=== PATIENT | male | born 1955 | race Caucasian/White ===

== ENCOUNTER 2018-08-28 17:53 | Inpatient (IN) | payer MEDICARE, OTHER ==
[~2018-08-28] VITALS: Ht 175.3 cm; Wt 79.4 kg
[2018-08-28] MEDS ORDERED: oxyCODONE/APAP 5/325 1 TAB TABLET PO ONE (19:45)
--- NOTE | 2018-08-28 20:28 | RAD ---
Three-view left knee radiographs 08/28/2018 CLINICAL HISTORY: Left knee pain post lifting furniture. AP, lateral and oblique digital radiographs of the left knee were obtained. An acute comminuted fracture of the proximal metaphysis of the left tibia is seen. The fracture extends to the medial aspect of the distal proximal metaphysis/proximal diaphysis and extends to the medial aspect of the medial compartment of the left knee joint. The alignment of the fracture fragments is near-anatomic. No additional fracture is seen. There is a moderate sized left knee joint effusion. IMPRESSION: Comminuted fracture of the proximal left tibia which extends to the medial tibial plateau/knee joint. Electronically signed by: Marcel Wallace MD (08/28/2018 8:24 PM) [facility]
[2018-08-28 20:52] LABS: BASO % 1 % (0-3); EOS # 0.1 x10^3/uL (0.0-0.7); EOS % 1 % (0-3); HEMATOCRIT 46.6 % (39.0-53.0); HEMOGLOBIN 16.3 g/dL (13.0-17.5); LYMPH # 1.6 x10^3/uL (1.0-4.8); LYMPH % 18 % (24-48); MEAN CORPUSCULAR HEMOGLOBIN 35 pg (25-35); MEAN CORPUSCULAR HGB CONC 35 g/dL (31-37); MEAN CORPUSCULAR VOLUME 100 fL (79-100); MONO # 1.2 x10^3/uL (0.0-1.1); MONO % 13 % (0-9); NEUT # 6.1 x10^3uL (1.8-7.7); NEUT % 67 % (31-73); PLATELET COUNT 143 x10^3/uL (140-400); RED BLOOD COUNT 4.64 x10^6/uL (4.30-5.70); RED CELL DISTRIBUTION WIDTH 13.3 % (11.5-14.5); WHITE BLOOD COUNT 9.1 x10^3/uL (4.0-11.0)
[2018-08-28] MEDS ORDERED: ONDANSETRON PF 4 MG/2 ML VIAL. IV PRN (21:00)
[2018-08-28 21:01] LABS: CALCIUM 9.3 mg/dL (8.5-10.1); GFR 75.5
[2018-08-28 21:06] LABS: ALBUMIN/GLOBULIN RATIO 1.4 (1.0-1.7); TOTAL BILIRUBIN 1.1 mg/dL (0.2-1.0); TOTAL PROTEIN 6.9 g/dL (6.4-8.2)
[2018-08-28] MEDS: MORPHINE SULFATE 4 MG/ML VIAL. IV PRN (21:54)
[2018-08-28 22:00] VITALS: BP 139/73
--- NOTE | 2018-08-28 22:36 | PHYS DOC ---
Past Medical History Past Medical History: Cancer, Liver Disease Past Surgical History: Other Additional Past Surgical Histo: LIVER BX,HERNIA Alcohol Use: None Drug Use: None Adult General Chief Complaint Chief Complaint: KNEE INJURY HPI HPI Patient is a 63 year old Male who presents to the emergency department today with complaints of left knee pain. Patient states that at approximately 10 o' clock this morning he was helping his brother load a moving truck and he was pushing an entertainment center that was loaded onto a guera into the moving truck when he lost his step and fell onto his left knee. Patient states that after he fell the entertainment center fell on top of him. He states he has been unable to bear weight on the affected extremity since the injury. He denies any complaints other than left leg and knee pain at this time. He states he has been using crutches to get around today. He reports normal sensation of the lower left extremity. However, he has been experiencing tingling and shooting sharp pains in the lower left extremity. Currently he rates his pain as a 9/10 on the pain scale at rest. Review of Systems Review of Systems Constitutional: Denies fever or chills [] Eyes: Denies change in visual acuity, redness, or eye pain [] HENT: Denies neck pain [] Respiratory: Denies shortness of breath [] Cardiovascular: denies chest pain Musculoskeletal: Denies back pain, reports L knee and lower left leg pain Integument: Denies rash or skin lesions, reports swelling to left knee [] Neurologic: Denies headache, focal weakness or sensory changes [] All other systems were reviewed and found to be within normal limits, except as documented in this note. Current Medications Current Medications Current Medications Medications (Trade) Dose Ordered Sig/[facility] Start Time Stop Time Status Last Admin Dose Admin Oxycodone/ Acetaminophen (Percocet 5/325) 1 tab 1X ONCE 08/28/18 19:45 08/28/18 19:54 DC 08/28/18 19:58 1 TAB Allergies Allergies Physical Exam Physical Exam Constitutional: Well developed, well nourished, mild distress, non-toxic appearance. [] HENT: Normocephalic, atraumatic, bilateral external ears normal, oropharynx moist, no oral exudates, nose normal. [] Eyes: conjunctiva normal, no discharge. [] Neck: Normal range of motion, no stridor. [] Lungs & Thorax: Respirations even and un-labored Skin: Warm, dry, no erythema, no rash. [] Extremities: No cyanosis, no clubbing; swelling and tenderness to left knee and LLE, L pedal and posterial tibial pulses 2+, pt unable to tolerate ROM testing of LLE due to pain Neurologic: Alert and oriented X 3, normal motor function, normal sensory function, no focal deficits noted. [] Psychologic: Affect normal, judgement normal, mood normal. [] Current Patient Data Vital Signs Vital Signs Date Time Temp Pulse Resp B/P (MAP) Pulse Ox O2 Delivery O2 Flow Rate FiO2 08/28/18 18:34 98.2 83 16 131/69 (89) 98 Room Air 98.2 Lab Values Laboratory Tests Test 08/28/18 20:40 White Blood Count 9.1 x10^3/uL (4.0-11.0) Red Blood Count 4.64 x10^6/uL (4.30-5.70) Hemoglobin 16.3 g/dL (13.0-17.5) Hematocrit 46.6 % (39.0-53.0) Mean Corpuscular Volume 100 fL (79-100) Mean Corpuscular Hemoglobin 35 pg (25-35) Mean Corpuscular Hemoglobin Concent 35 g/dL (31-37) Red Cell Distribution Width 13.3 % (11.5-14.5) Platelet Count 143 x10^3/uL (140-400) Neutrophils (%) (Auto) 67 % (31-73) Lymphocytes (%) (Auto) 18 % (24-48) L Monocytes (%) (Auto) 13 % (0-9) H Eosinophils (%) (Auto) 1 % (0-3) Basophils (%) (Auto) 1 % (0-3) Neutrophils # (Auto) 6.1 x10^3uL (1.8-7.7) Lymphocytes # (Auto) 1.6 x10^3/uL (1.0-4.8) Monocytes # (Auto) 1.2 x10^3/uL (0.0-1.1) H Eosinophils # (Auto) 0.1 x10^3/uL (0.0-0.7) Basophils # (Auto) 0.0 x10^3/uL (0.0-0.2) Sodium Level 136 mmol/L (136-145) Potassium Level 4.0 mmol/L (3.5-5.1) Chloride Level 98 mmol/L (98-107) Carbon Dioxide Level 24 mmol/L (21-32) Anion Gap 14 (6-14) Blood Urea Nitrogen 10 mg/dL (8-26) Creatinine 1.0 mg/dL (0.7-1.3) Estimated GFR (Cockcroft-Gault) 75.5 BUN/Creatinine Ratio 10 (6-20) Glucose Level 95 mg/dL (70-99) Calcium Level 9.3 mg/dL (8.5-10.1) Total Bilirubin 1.1 mg/dL (0.2-1.0) H Aspartate Amino Transferase (AST) 36 U/L (15-37) Alanine Aminotransferase (ALT) 49 U/L (16-63) Alkaline Phosphatase 84 U/L (46-116) Total Protein 6.9 g/dL (6.4-8.2) Albumin 4.0 g/dL (3.4-5.0) Albumin/Globulin Ratio 1.4 (1.0-1.7) Laboratory Tests 08/28/18 20:40 Laboratory Tests 08/28/18 20:40 EKG EKG [] Radiology/Procedures Radiology/Procedures PROCEDURE: KNEE LEFT 3V Three-view left knee radiographs 08/28/2018 CLINICAL HISTORY: Left knee pain post lifting furniture. AP, lateral and oblique digital radiographs of the left knee were obtained. An acute comminuted fracture of the proximal metaphysis of the left tibia is seen. The fracture extends to the medial aspect of the distal proximal metaphysis/proximal diaphysis and extends to the medial aspect of the medial compartment of the left knee joint. The alignment of the fracture fragments is near-anatomic. No additional fracture is seen. There is a moderate sized left knee joint effusion. IMPRESSION: Comminuted fracture of the proximal left tibia which extends to the medial tibial plateau/knee joint.[] Course & Med Decision Making Course & Med Decision Making Pertinent Labs and Imaging studies reviewed. (See chart for details) Dx: L tibial plateau fracture Pt was given one 5/325 mg tablet of percocet and 4 mg of IV morphine in the ER for pain relief. X-rays of the left knee revealed Comminuted fracture of the proximal left tibia which extends to the medial tibial plateau/knee joint. Pt was placed in a velcro knee immobilizer by ER staff prior to admission to hospital . 1999 Spoke with Irina ORTEGA for Dr. Barillas will admit patient to hospitalist for left tibial plateau fracture and consult Dr. Barillas [address] Garcia will admit patient for left tibal plateau fracture and consult Dr. Doshi [] Staff Physician Addendum: I was working in the ER during the course of this patient's visit. I was available for consultation as needed, but I was not directly involved in the care of this patient. Dragon Disclaimer Dragon Disclaimer This electronic medical record was generated, in whole or in part, using a voice recognition dictation system. Departure Departure Impression: Primary Impression: Tibial plateau fracture, left Disposition: 09 ADMITTED INPATIENT Admitting Physician: Leslie Garcia Condition: STABLE Referrals: UNKNOWN PCP NAME (PCP) Problem Qualifiers Primary Impression: Tibial plateau fracture, left Encounter type: initial encounter Fracture type: closed Qualified Codes: S82.142A - Displaced bicondylar fracture of left tibia, initial encounter for closed fracture KENZIE AMARO APRN Aug 28, 2018 22:36 RHONDA GUERRA MD Aug 31, 2018 06:14
[2018-08-29 03:00] VITALS: BP 105/58
[2018-08-29 07:00] VITALS: BP 111/60
[2018-08-29] MEDS: MORPHINE SULFATE 4 MG/ML VIAL. IV PRN ×3 (07:40→15:53)
[2018-08-29] MEDS ORDERED: IV NORMAL SALINE 1000ML BAG 1,000 ML IV ONE (08:45)
--- NOTE | 2018-08-29 08:47 | PDOC1 ---
History and Physical Date of Admission Date of Admission DATE: 08/29/18 TIME: 08:42 Source Source: Chart review, Patient History of Present Illness History of Present Illness Mr. Contreras, visiting from [place] to help his brother move, fell and injured his left knee yesterday. Could not walk, waited almost 8 hours and thought it would improve before coming to the ER. severe, could not toe touch with left foot, and could not use crutches due to pain X ray showed tibial plateau fx. 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) GI: Other (liver disease, that he says is now resolved, ) Family History Family History: No Significant Social History Smoke: No ALCOHOL: rare (1 every few months) Drugs: None Current Problem List Problem List Problems Medical Problems: (1) Tibial plateau fracture, left Status: Acute Current Medications Current Medications Current Medications Oxycodone/ Acetaminophen (Percocet 5/325) 1 tab 1X ONCE PO Last administered on 08/28/18at 19:58; Start 08/28/18 at 19:45; Stop 08/28/18 at 19:54; Status DC Ondansetron HCl (Zofran) 4 mg PRN Q8HRS PRN IV NAUSEA/VOMITING 1ST CHOICE; Start 08/28/18 at 21:00; Stop 08/29/18 at 20:59 Morphine Sulfate (Morphine Sulfate) 4 mg PRN Q2HR PRN IV SEVERE PAIN Last administered on 08/29/18at 07:40; Start 08/28/18 at 21:00; Stop 08/29/18 at 20:59 Allergies Allergies: Coded Allergies: No Known Drug Allergies (Unverified , 08/28/18) ROS General: No: Chills, Night Sweats, Fatigue, Malaise, Appetite, Other PSYCHOLOGICAL ROS: No: Anxiety, Behavioral Disorder, Concentration difficultie , Decreased libido, Depression, Disorientation, Hallucinations, Hostility, Irritablity, Memory difficulties, Mood Swings, Obsessive thoughts, Physical abuse, Sexual abuse, Sleep disturbances, Suicidal ideation, Other Eyes: No Blurry vision, No Decreased vision, No Double vision, No Dry eyes, No Excessive tearing, No Eye Pain, No Itchy Eyes, No Loss of vision, No Photophobia , No Scotomata, No Uses contacts, No Uses glasses, No Other HEENT: No: Heacaches, Visual Changes, Hearing change, Nasal congestion, Nasal discharge, Oral lesions, Sinus pain, Sore Throat, Epistaxis, Sneezing, Snoring, Tinnitus, Vertigo, Vocal changes, Other ENDOCRINE: No: Breast Changes, Galactorrhea, Hair Pattern Changes, Hot Flashes , Malaise/lethargy, Mood Swings, Palpitations, Polydipsia/polyuria, Skin Changes , Temperature Intolerance, Unexpected Weight Changes, Other Respiratory: No: Cough, Hemoptysis, Orthopnea, Pleuritic Pain, Shortness of breath, SOB with excertion, Sputum Changes, Stridor, Tachypnea, Wheezing, Other Cardiovascular: No Chest Pain, No Palpitations, No Orthopnea, No Paroxysmal Noc. Dyspnea, No Edema, No Lt Headedness, No Other Gastrointestinal: No Nausea, No Vomiting, No Abdominal Pain, No Diarrhea, No Constipation, No Melena, No Hematochezia, No Other Genitourinary: No Dysuria, No Frequency, No Incontinence, No Hematuria, No Retention, No Discharge, No Urgency, No Pain, No Flank Pain, No Other, No , No , No , No , No , No , No Musculoskeletal: Yes Gait Disturbance, Yes Joint Pain, Yes Joint Stiffness; No Joint Swelling, No Muscle Pain, No Muscular Weakness, No Pain In:, No Swelling In:, No Other Neurological: No Behavorial Changes, No Bowel/Bladder ControlChng, No Confusion , No Dizziness, No Headaches, No Impaired Coord/balance, No Memory Loss, No Numbness/Tingling, No Seizures, No Speech Problems, No Tremors, No Visual Changes, No Weakness, No Other Skin: No Dry Skin, No Eczema, No Hair Changes, No Lumps, No Mole Changes, No Mottling, No Nail Changes, No Pruritus, No Rash, No Skin Lesion Changes, No Other, No Acne Physical Exam General: Alert, Oriented X3, Cooperative, No acute distress HEENT: Atraumatic, EOMI, Mucous membr. moist/pink Lungs: Clear to auscultation, Normal air movement Heart: S1S2 Abdomen: Normal bowel sounds, Soft Rectal Exam: not examined Extremities: No edema, Normal pulses Skin: No rashes, No significant lesion Neuro: Normal speech, Sensation intact, Cranial nerves 3-12 NL Psych/Mental Status: Mental status NL, Mood NL Vitals Vitals Vital Signs Date Time Temp Pulse Resp B/P (MAP) Pulse Ox O2 Delivery O2 Flow Rate FiO2 08/29/18 08:21 Room Air 08/29/18 07:00 97.7 64 18 111/60 (77) 97 97.7 Labs Labs Laboratory Tests Test 08/28/18 20:40 White Blood Count 9.1 x10^3/uL (4.0-11.0) Red Blood Count 4.64 x10^6/uL (4.30-5.70) Hemoglobin 16.3 g/dL (13.0-17.5) Hematocrit 46.6 % (39.0-53.0) Mean Corpuscular Volume 100 fL (79-100) Mean Corpuscular Hemoglobin 35 pg (25-35) Mean Corpuscular Hemoglobin Concent 35 g/dL (31-37) Red Cell Distribution Width 13.3 % (11.5-14.5) Platelet Count 143 x10^3/uL (140-400) Neutrophils (%) (Auto) 67 % (31-73) Lymphocytes (%) (Auto) 18 % (24-48) Monocytes (%) (Auto) 13 % (0-9) Eosinophils (%) (Auto) 1 % (0-3) Basophils (%) (Auto) 1 % (0-3) Neutrophils # (Auto) 6.1 x10^3uL (1.8-7.7) Lymphocytes # (Auto) 1.6 x10^3/uL (1.0-4.8) Monocytes # (Auto) 1.2 x10^3/uL (0.0-1.1) Eosinophils # (Auto) 0.1 x10^3/uL (0.0-0.7) Basophils # (Auto) 0.0 x10^3/uL (0.0-0.2) Sodium Level 136 mmol/L (136-145) Potassium Level 4.0 mmol/L (3.5-5.1) Chloride Level 98 mmol/L (98-107) Carbon Dioxide Level 24 mmol/L (21-32) Anion Gap 14 (6-14) Blood Urea Nitrogen 10 mg/dL (8-26) Creatinine 1.0 mg/dL (0.7-1.3) Estimated GFR (Cockcroft-Gault) 75.5 BUN/Creatinine Ratio 10 (6-20) Glucose Level 95 mg/dL (70-99) Calcium Level 9.3 mg/dL (8.5-10.1) Total Bilirubin 1.1 mg/dL (0.2-1.0) Aspartate Amino Transf (AST/SGOT) 36 U/L (15-37) Alanine Aminotransferase (ALT/SGPT) 49 U/L (16-63) Alkaline Phosphatase 84 U/L (46-116) Total Protein 6.9 g/dL (6.4-8.2) Albumin 4.0 g/dL (3.4-5.0) Albumin/Globulin Ratio 1.4 (1.0-1.7) Laboratory Tests Test 08/28/18 20:40 White Blood Count 9.1 x10^3/uL (4.0-11.0) Red Blood Count 4.64 x10^6/uL (4.30-5.70) Hemoglobin 16.3 g/dL (13.0-17.5) Hematocrit 46.6 % (39.0-53.0) Mean Corpuscular Volume 100 fL (79-100) Mean Corpuscular Hemoglobin 35 pg (25-35) Mean Corpuscular Hemoglobin Concent 35 g/dL (31-37) Red Cell Distribution Width 13.3 % (11.5-14.5) Platelet Count 143 x10^3/uL (140-400) Neutrophils (%) (Auto) 67 % (31-73) Lymphocytes (%) (Auto) 18 % (24-48) Monocytes (%) (Auto) 13 % (0-9) Eosinophils (%) (Auto) 1 % (0-3) Basophils (%) (Auto) 1 % (0-3) Neutrophils # (Auto) 6.1 x10^3uL (1.8-7.7) Lymphocytes # (Auto) 1.6 x10^3/uL (1.0-4.8) Monocytes # (Auto) 1.2 x10^3/uL (0.0-1.1) Eosinophils # (Auto) 0.1 x10^3/uL (0.0-0.7) Basophils # (Auto) 0.0 x10^3/uL (0.0-0.2) Sodium Level 136 mmol/L (136-145) Potassium Level 4.0 mmol/L (3.5-5.1) Chloride Level 98 mmol/L (98-107) Carbon Dioxide Level 24 mmol/L (21-32) Anion Gap 14 (6-14) Blood Urea Nitrogen 10 mg/dL (8-26) Creatinine 1.0 mg/dL (0.7-1.3) Estimated GFR (Cockcroft-Gault) 75.5 BUN/Creatinine Ratio 10 (6-20) Glucose Level 95 mg/dL (70-99) Calcium Level 9.3 mg/dL (8.5-10.1) Total Bilirubin 1.1 mg/dL (0.2-1.0) Aspartate Amino Transf (AST/SGOT) 36 U/L (15-37) Alanine Aminotransferase (ALT/SGPT) 49 U/L (16-63) Alkaline Phosphatase 84 U/L (46-116) Total Protein 6.9 g/dL (6.4-8.2) Albumin 4.0 g/dL (3.4-5.0) Albumin/Globulin Ratio 1.4 (1.0-1.7) VTE Prophylaxis Ordered VTE Prophylaxis Devices: No VTE Pharmacological Prophylaxi: No Assessment/Plan Assessment/Plan Comminuted fracture of the proximal left tibia which extends to the medial tibial plateau/knee joint. Otherwise healthy male with prior occupational smoke exposre and possible toxins that had transiently caused liver dysfunction LANDY DEL VALLE MD Aug 29, 2018 08:47
[2018-08-29 11:00] VITALS: BP 111/58
[2018-08-29] MEDS: KETOROLAC 30 MG/ML VIAL. IV SCH ×3 (11:47→23:54)
--- NOTE | 2018-08-29 13:44 | PDOC2 ---
CONSULT Date of Consult Date of Consult DATE: 08/29/18 TIME: 13:21 Reason for Consult Reason for Consult: left tibial plateau fracture Identification/Chief Complaint Chief Complaint left knee pain Source Source: Chart review, Patient History of Present Illness Reason for Visit: The patient is a 63 year old male admitted with left tibial plateau fracture. He states he is in town from [place] helping his brother move to [place]. He was loading an entertainment center into a [employer] and lost his balance and the entertainment center fell onto his knee. He states his pain is controlled now and is minimal. He has a knee immobilizer on his left knee and has been using ice. He has a history of left ankle fracture x2, treated nonoperatively. He is overall healthy besides liver disease in the past, which he states has been treated. He denies metal allergy. 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) GI: Other (liver disease, that he says is now resolved) Past Surgical History Past Surgical History: Hernia Repair, Other (liver biopsy, left tarsal tunnel release) Family History Family History: No Significant Social History No ALCOHOL: rare (1 every few months) Drugs: None Current Problem List Problem List Problems Medical Problems: (1) Tibial plateau fracture, left Status: Acute Current Medications Current Medications Current Medications Oxycodone/ Acetaminophen (Percocet 5/325) 1 tab 1X ONCE PO Last administered on 08/28/18at 19:58; Start 08/28/18 at 19:45; Stop 08/28/18 at 19:54; Status DC Ondansetron HCl (Zofran) 4 mg PRN Q8HRS PRN IV NAUSEA/VOMITING 1ST CHOICE; Start 08/28/18 at 21:00; Stop 08/29/18 at 20:59 Morphine Sulfate (Morphine Sulfate) 4 mg PRN Q2HR PRN IV SEVERE PAIN Last administered on 08/29/18at 10:32; Start 08/28/18 at 21:00; Stop 08/29/18 at 20:59 Sodium Chloride 1,000 ml @ 75 mls/hr 1X ONCE IV Last administered on at 09:03; Start 08/29/18 at 08:45; Stop 08/29/18 at 22:04 Ketorolac Tromethamine (Toradol 30mg Vial) 30 mg Q6HRS IV Last administered on 08/29/18at 11:47; Start 08/29/18 at 12:00; Stop 09/03/18 at 11:59 Allergies Allergies: Coded Allergies: No Known Drug Allergies (Unverified , 08/28/18) ROS General: No: Chills, Night Sweats Eyes: No Decreased vision, No Double vision HEENT: No: Heacaches, Visual Changes Hematological and Lymphatic: No: Bleeding Problems, Blood Clots Respiratory: No: Cough, Shortness of breath Cardiovascular: No Chest Pain, No Palpitations Gastrointestinal: No Nausea, No Vomiting Musculoskeletal: Yes Gait Disturbance, Yes Joint Pain, Yes Joint Swelling, Yes Pain In: (left knee ) Neurological: No Confusion, No Dizziness Physical Exam General: Alert, Oriented X3, Cooperative, No acute distress HEENT: Atraumatic, EOMI Lungs: Normal air movement Heart: Regular rate Abdomen: Soft Extremities: No clubbing, No cyanosis, Normal pulses Skin: No rashes, No breakdown, No significant lesion Neuro: Normal speech, Sensation intact Psych/Mental Status: Mental status NL, Mood NL MUSCULOSKELETAL: Other (Left knee immobilizer removed for exam. Skin intact over fracture. Minimal soft tissue swelling. No ecchymosis. Tenderness to palpation over fracture. Thigh and calf soft and nontender with negative Frankie' s sign. Good dorsiflexion and plantarflexion at foot. Peripheral pulses and light touch sensation intact. ) Vitals VITALS Vital Signs Date Time Temp Pulse Resp B/P (MAP) Pulse Ox O2 Delivery O2 Flow Rate FiO2 08/29/18 11:00 98.2 70 16 111/58 (75) 98 Room Air 98.2 Labs Labs Laboratory Tests Test 08/28/18 20:40 White Blood Count 9.1 x10^3/uL (4.0-11.0) Red Blood Count 4.64 x10^6/uL (4.30-5.70) Hemoglobin 16.3 g/dL (13.0-17.5) Hematocrit 46.6 % (39.0-53.0) Mean Corpuscular Volume 100 fL (79-100) Mean Corpuscular Hemoglobin 35 pg (25-35) Mean Corpuscular Hemoglobin Concent 35 g/dL (31-37) Red Cell Distribution Width 13.3 % (11.5-14.5) Platelet Count 143 x10^3/uL (140-400) Neutrophils (%) (Auto) 67 % (31-73) Lymphocytes (%) (Auto) 18 % (24-48) Monocytes (%) (Auto) 13 % (0-9) Eosinophils (%) (Auto) 1 % (0-3) Basophils (%) (Auto) 1 % (0-3) Neutrophils # (Auto) 6.1 x10^3uL (1.8-7.7) Lymphocytes # (Auto) 1.6 x10^3/uL (1.0-4.8) Monocytes # (Auto) 1.2 x10^3/uL (0.0-1.1) Eosinophils # (Auto) 0.1 x10^3/uL (0.0-0.7) Basophils # (Auto) 0.0 x10^3/uL (0.0-0.2) Sodium Level 136 mmol/L (136-145) Potassium Level 4.0 mmol/L (3.5-5.1) Chloride Level 98 mmol/L (98-107) Carbon Dioxide Level 24 mmol/L (21-32) Anion Gap 14 (6-14) Blood Urea Nitrogen 10 mg/dL (8-26) Creatinine 1.0 mg/dL (0.7-1.3) Estimated GFR (Cockcroft-Gault) 75.5 BUN/Creatinine Ratio 10 (6-20) Glucose Level 95 mg/dL (70-99) Calcium Level 9.3 mg/dL (8.5-10.1) Total Bilirubin 1.1 mg/dL (0.2-1.0) Aspartate Amino Transf (AST/SGOT) 36 U/L (15-37) Alanine Aminotransferase (ALT/SGPT) 49 U/L (16-63) Alkaline Phosphatase 84 U/L (46-116) Total Protein 6.9 g/dL (6.4-8.2) Albumin 4.0 g/dL (3.4-5.0) Albumin/Globulin Ratio 1.4 (1.0-1.7) Laboratory Tests Test 08/28/18 20:40 White Blood Count 9.1 x10^3/uL (4.0-11.0) Red Blood Count 4.64 x10^6/uL (4.30-5.70) Hemoglobin 16.3 g/dL (13.0-17.5) Hematocrit 46.6 % (39.0-53.0) Mean Corpuscular Volume 100 fL (79-100) Mean Corpuscular Hemoglobin 35 pg (25-35) Mean Corpuscular Hemoglobin Concent 35 g/dL (31-37) Red Cell Distribution Width 13.3 % (11.5-14.5) Platelet Count 143 x10^3/uL (140-400) Neutrophils (%) (Auto) 67 % (31-73) Lymphocytes (%) (Auto) 18 % (24-48) Monocytes (%) (Auto) 13 % (0-9) Eosinophils (%) (Auto) 1 % (0-3) Basophils (%) (Auto) 1 % (0-3) Neutrophils # (Auto) 6.1 x10^3uL (1.8-7.7) Lymphocytes # (Auto) 1.6 x10^3/uL (1.0-4.8) Monocytes # (Auto) 1.2 x10^3/uL (0.0-1.1) Eosinophils # (Auto) 0.1 x10^3/uL (0.0-0.7) Basophils # (Auto) 0.0 x10^3/uL (0.0-0.2) Sodium Level 136 mmol/L (136-145) Potassium Level 4.0 mmol/L (3.5-5.1) Chloride Level 98 mmol/L (98-107) Carbon Dioxide Level 24 mmol/L (21-32) Anion Gap 14 (6-14) Blood Urea Nitrogen 10 mg/dL (8-26) Creatinine 1.0 mg/dL (0.7-1.3) Estimated GFR (Cockcroft-Gault) 75.5 BUN/Creatinine Ratio 10 (6-20) Glucose Level 95 mg/dL (70-99) Calcium Level 9.3 mg/dL (8.5-10.1) Total Bilirubin 1.1 mg/dL (0.2-1.0) Aspartate Amino Transf (AST/SGOT) 36 U/L (15-37) Alanine Aminotransferase (ALT/SGPT) 49 U/L (16-63) Alkaline Phosphatase 84 U/L (46-116) Total Protein 6.9 g/dL (6.4-8.2) Albumin 4.0 g/dL (3.4-5.0) Albumin/Globulin Ratio 1.4 (1.0-1.7) Images Images Left knee xray images and report reviewed. Comminuted medial tibial plateau fracture with intra-articular extension. Awaiting CT to be done. Assessment/Plan Assessment/Plan Left tibial plateau fracture. The patient is a 63 year old male who sustained a tibial plateau fracture from an entertainment center falling on his knee while trying to help his brother move. X-rays were shown and explained to the patient. Nonoperative and operative treatment was discussed with the patient. Dr. Barillas recommended open reduction internal fixation with plate and screw fixation. The patient denies metal allergy. Risks of surgery were discussed, including infection, bleeding, blood clots, neurovascular injury, nonunion, hardware failure. All of his questions were answered and he desires to proceed. He does live in [place], so he will find an orthopedic surgeon to followup with postop there. Surgery scheduled for tomorrow 08/30/18 around 3pm. VIV GLASGOW Aug 29, 2018 13:43
[2018-08-29 15:00] VITALS: BP 122/64
--- NOTE | 2018-08-29 15:57 | RAD ---
CT of the left knee without contrast, 08/29/2018: HISTORY: Tibial plateau fracture Noncontrast scans were obtained with multiplanar reconstructions produced. There is a slightly comminuted fracture of the proximal tibia. The major fracture line originates superiorly along the medial margin of the tibial spines and extends inferiorly and medially a distance of approximately 8 cm. The majority of the fracture shows very little displacement. There is a small depressed fracture fragment along the posterior margin of the medial tibial plateau posteriorly. There is a lucency along the lower pole of the patella with the pattern suggesting a nondisplaced recent fracture. The distal femur appears intact. There is a large lipohemarthrosis at the left knee joint. IMPRESSION: 1. Proximal tibial fracture with involvement of the medial tibial plateau as described above. 2. Nondisplaced fracture of the lower pole of the patella. 3. Large lipohemarthrosis. PQRS Compliance Statement: One or more of the following individualized dose reduction techniques were utilized for this examination: 1. Automated exposure control 2. Adjustment of the mA and/or kV according to patient size 3. Use of iterative reconstruction technique Electronically signed by: Reinier Whitaker MD (08/29/2018 3:54 PM) [facility]
[2018-08-29 19:00] VITALS: BP 111/66
[2018-08-29 22:46] VITALS: BP 119/60
[2018-08-30] VITALS (11 sets, daily range): BP systolic 108–133; BP diastolic 54–77
[2018-08-30] MEDS: KETOROLAC 30 MG/ML VIAL. IV SCH ×3 (06:00→18:53)
[2018-08-30] MEDS ORDERED: PROCHLORPERAZINE 10 MG/2 ML VIAL. IV PRN (07:00)
[2018-08-30] MEDS ORDERED: HYDROmorphone 2 MG/ML VIAL IV PRN (07:00)
[2018-08-30] MEDS ORDERED: LIDOCAINE 1% PF 2 ML VIAL. ID PRN (07:00)
[2018-08-30] MEDS ORDERED: fentaNYL PF VIAL 100 MCG/2 ML VIAL IV PRN ×2 (07:00→17:30)
[2018-08-30] MEDS ORDERED: ONDANSETRON PF 4 MG/2 ML VIAL. IV PRN ×2 (07:00→17:30)
[2018-08-30] MEDS ORDERED: IV RINGERS,LACTATED 1000ML 1,000 ML IV SCH (07:00)
[2018-08-30] MEDS ORDERED: ERGOCALCIFEROL (VITAMIN D2) 50,000 UNIT CAPSULE. PO SCH (09:00)
[2018-08-30] MEDS ORDERED: MORPHINE SULFATE 4 MG/ML VIAL. IV PRN ×2 (10:30→17:30)
--- NOTE | 2018-08-30 12:18 | PDOC ---
PROGRESS NOTES Chief Complaint Chief Complaint fracture of tibial plateau to surg today, Dr.vani prabhakar current History of Present Illness History of Present Illness feels OK pain ok when at rest, surg today, try to DC in AM Vitals Vitals Vital Signs Date Time Temp Pulse Resp B/P (MAP) Pulse Ox O2 Delivery O2 Flow Rate FiO2 08/30/18 11:09 Room Air 08/30/18 11:00 98.0 61 18 108/60 (76) 97 98.0 Physical Exam General: Alert, Oriented X3, Cooperative, No acute distress Heart: Regular rate Abdomen: Soft Extremities: No clubbing, No cyanosis, Normal pulses Skin: No rashes, No breakdown, No significant lesion Labs LABS Laboratory Tests Test 08/29/18 13:45 25-Hydroxy Vitamin D Total 13.9 ng/mL (30-100) Assessment and Plan Assessmemt and Plan Problems Medical Problems: (1) Tibial plateau fracture, left Status: Acute Comment Review of Relevant I have reviewed the following items berto (where applicable) has been applied. Labs Laboratory Tests Test 08/28/18 20:40 08/29/18 13:45 White Blood Count 9.1 x10^3/uL (4.0-11.0) Red Blood Count 4.64 x10^6/uL (4.30-5.70) Hemoglobin 16.3 g/dL (13.0-17.5) Hematocrit 46.6 % (39.0-53.0) Mean Corpuscular Volume 100 fL (79-100) Mean Corpuscular Hemoglobin 35 pg (25-35) Mean Corpuscular Hemoglobin Concent 35 g/dL (31-37) Red Cell Distribution Width 13.3 % (11.5-14.5) Platelet Count 143 x10^3/uL (140-400) Neutrophils (%) (Auto) 67 % (31-73) Lymphocytes (%) (Auto) 18 % (24-48) Monocytes (%) (Auto) 13 % (0-9) Eosinophils (%) (Auto) 1 % (0-3) Basophils (%) (Auto) 1 % (0-3) Neutrophils # (Auto) 6.1 x10^3uL (1.8-7.7) Lymphocytes # (Auto) 1.6 x10^3/uL (1.0-4.8) Monocytes # (Auto) 1.2 x10^3/uL (0.0-1.1) Eosinophils # (Auto) 0.1 x10^3/uL (0.0-0.7) Basophils # (Auto) 0.0 x10^3/uL (0.0-0.2) Sodium Level 136 mmol/L (136-145) Potassium Level 4.0 mmol/L (3.5-5.1) Chloride Level 98 mmol/L (98-107) Carbon Dioxide Level 24 mmol/L (21-32) Anion Gap 14 (6-14) Blood Urea Nitrogen 10 mg/dL (8-26) Creatinine 1.0 mg/dL (0.7-1.3) Estimated GFR (Cockcroft-Gault) 75.5 BUN/Creatinine Ratio 10 (6-20) Glucose Level 95 mg/dL (70-99) Calcium Level 9.3 mg/dL (8.5-10.1) Total Bilirubin 1.1 mg/dL (0.2-1.0) Aspartate Amino Transf (AST/SGOT) 36 U/L (15-37) Alanine Aminotransferase (ALT/SGPT) 49 U/L (16-63) Alkaline Phosphatase 84 U/L (46-116) Total Protein 6.9 g/dL (6.4-8.2) Albumin 4.0 g/dL (3.4-5.0) Albumin/Globulin Ratio 1.4 (1.0-1.7) 25-Hydroxy Vitamin D Total 13.9 ng/mL (30-100) Laboratory Tests Test 08/29/18 13:45 25-Hydroxy Vitamin D Total 13.9 ng/mL (30-100) Medications Current Medications Oxycodone/ Acetaminophen (Percocet 5/325) 1 tab 1X ONCE PO Last administered on 08/28/18at 19:58; Start 08/28/18 at 19:45; Stop 08/28/18 at 19:54; Status DC Ondansetron HCl (Zofran) 4 mg PRN Q8HRS PRN IV NAUSEA/VOMITING 1ST CHOICE; Start 08/28/18 at 21:00; Stop 08/29/18 at 20:59; Status DC Morphine Sulfate (Morphine Sulfate) 4 mg PRN Q2HR PRN IV SEVERE PAIN Last administered on 08/29/18at 15:53; Start 08/28/18 at 21:00; Stop 08/29/18 at 20:59 ; Status DC Sodium Chloride 1,000 ml @ 75 mls/hr 1X ONCE IV Last administered on at 09:03; Start 08/29/18 at 08:45; Stop 08/29/18 at 22:04; Status DC Ketorolac Tromethamine (Toradol 30mg Vial) 30 mg Q6HRS IV Last administered on 08/30/18at 06:00; Start 08/29/18 at 12:00; Stop 09/03/18 at 11:59 Ondansetron HCl (Zofran) 4 mg PRN Q6HRS PRN IV NAUSEA/VOMITING; Start 08/30/18 at 07:00; Stop 08/30/18 at 21:00 Fentanyl Citrate (Fentanyl 2ml Vial) 25 mcg PRN Q5MIN PRN IV MILD PAIN; Start 08/30/18 at 07:00; Stop 08/30/18 at 21:00 Fentanyl Citrate (Fentanyl 2ml Vial) 50 mcg PRN Q5MIN PRN IV MODERATE TO SEVERE PAIN; Start 08/30/18 at 07:00; Stop 08/30/18 at 21:00 Morphine Sulfate (Morphine Sulfate) 1 mg PRN Q10MIN PRN IV SEVERE PAIN; Start 08/30/18 at 07:00; Stop 08/30/18 at 21:00 Ringer's Solution 1,000 ml @ 30 mls/hr Q24H IV ; Start 08/30/18 at 07:00; Stop 08/30/18 at 18:59 Lidocaine HCl (Xylocaine-Mpf 1% 2ml Vial) 2 ml PRN 1X PRN ID IV START; Start 08/30/18 at 07:00; Stop 08/30/18 at 21:00 Hydromorphone HCl (Dilaudid) 0.5 mg PRN Q10MIN PRN IV SEV PAIN, Second choice; Start 08/30/18 at 07:00; Stop 08/30/18 at 21:00 Prochlorperazine Edisylate (Compazine) 5 mg PACU PRN PRN IV NAUSEA, MRX1; Start 08/30/18 at 07:00; Stop 08/30/18 at 21:00 Ergocalciferol (Vitamin D2) 50,000 unit WEEKLY PO Last administered on at 09:39; Start 08/30/18 at 09:00 Morphine Sulfate (Morphine Sulfate) 4 mg PRN Q2HR PRN IV PAIN Last administered on 08/30/18at 10:30; Start 08/30/18 at 10:30 Vitals/I & O Vital Sign - Last 24 Hours 08/29/18 08/29/18 08/29/18 08/29/18 15:00 15:53 16:42 19:00 Temp 97.9 97.4 97.9 97.4 Pulse 78 73 Resp 18 18 B/P (MAP) 122/64 (83) 111/66 (81) Pulse Ox 95 95 O2 Delivery Room Air Room Air Room Air Room Air 08/29/18 08/29/18 08/30/18 08/30/18 19:46 22:46 03:00 07:00 Temp 98.4 98.9 97.7 98.4 98.9 97.7 Pulse 73 73 70 Resp 18 16 18 B/P (MAP) 119/60 (79) 111/59 (76) 108/54 (72) Pulse Ox 91 91 94 O2 Delivery Room Air Room Air Room Air Room Air 08/30/18 08/30/18 08/30/18 08/30/18 07:00 10:30 11:00 11:09 Temp 98.0 98.0 Pulse 61 Resp 18 B/P (MAP) 108/60 (76) Pulse Ox 97 O2 Delivery Room Air Room Air Room Air Room Air Intake and Output 08/29/18 08/29/18 08/30/18 15:00 23:00 07:00 Intake Total 180 ml 1000 ml Output Total 500 ml 400 ml Balance -320 ml 600 ml LANDY DEL VALLE MD Aug 30, 2018 12:18
[2018-08-30] MEDS ORDERED: BUPIVAC MPF-EPI 0.5%-1:200000 30 ML VIAL. ONE (13:38)
[2018-08-30] MEDS ORDERED: fentaNYL PF VIAL 100 MCG/2 ML VIAL ONE (14:11)
[2018-08-30] MEDS ORDERED: MIDAZOLAM HCL/PF 2 MG/2 ML VIAL. ONE (14:11)
[2018-08-30] MEDS ORDERED: PROPOFOL 20 ML IV ONE (14:11)
[2018-08-30] MEDS ORDERED: ceFAZolin 2GM PREMIX 2 GM/50 ML BAG IV ONE (15:00)
[2018-08-30] MEDS ORDERED: oxyCODONE IR 5 MG TABLET PO PRN (17:30)
[2018-08-30] MEDS ORDERED: MORPHINE SULFATE 2 MG/ML VIAL. IV PRN (17:30)
[2018-08-30] MEDS ORDERED: POLYETHYLENE GLYCOL 3350 17 GM PACKET. PO PRN (17:30)
[2018-08-30] MEDS ORDERED: HYDROcodone/APAP 7.5/325MG 1 TAB TABLET PO PRN (17:30)
[2018-08-30] MEDS ORDERED: DEXTROSE 50% 25 GM / 50ML DISP.SYRIN. IV PRN (17:30)
[2018-08-30] MEDS: fentaNYL PF VIAL 100 MCG/2 ML VIAL IV PRN ×2 (17:35→17:54)
--- NOTE | 2018-08-30 17:35 | PDOC4 ---
Operative Note Operative Note Date of Procedure: August 30, 2018 Pre-Op Diagnosis: Nondisplaced fracture of medial condyle of left tibia, initial encounter for closed fracture, S82.13A Post-Op Diagnosis: Same Procedure: Open treatment of tibial fracture, proximal, unicondylar, with internal fixation, CPT 69280 Surgeon: Dileep Barillas MD Emergency Communications Officer: Irina Chauahn PA-C Anesthesia: General EBL: 50 mL Specimens Obtained: none Complications: none Drains: none Findings: Nondisplaced but unstable pattern medial tibial plateau fracture , closed, left Tourniquet time: 31 minutes Indications for Procedure: The patient is a 63-year-old man who had an [place] SA fall on his leg. X-rays and CT scan showed upper tibia fracture with intra-articular extension, of the medial tibial condyle,a vertical sagittal plane fracture, with minimal displacement. We discussed options for treatment such as nonoperative or operative treatment. Generally these medial fractures are quite unstable and do poorly with nonoperative treatment due to slow healing and ultimate displacement of the articular surface leading to severe knee arthritis problems. I recommended internal fixation and stabilization of the fracture. We discussed the potential risks such as nonunion or malunion, hardware failure, need for hardware removal, bleeding, infection, scarring, blood clots, numbness around the incision, neurovascular injury distally, or other potential surgical or anesthetic competitions. All of his questions about surgery were answered and he desired to proceed. The patient and I discussed the risks, benefits and alternatives of surgery. Procedure in Detail: The patient was identified in the preoperative holding area. The correct left lower extremity was marked by me. The patient was taken to the operating room where general anesthesia was used. The patient was positioned supine on the operating table. Preoperative antibiotics were given intravenously. A timeout procedure was performed. A tourniquet was applied to the left thigh. The limb was prepared in sterile fashion with surgical prep solution. Sterile drapes were applied. There was a massive hemarthrosis, and under sterile technique 100 mLs of bloody fluid was aspirated, with the expected fat droplets consistent with intra -articular fracture. I injected 20 mLs of 0.5% bupivacaine with epinephrine for hemostasis and pain relief. An Esmarch bandage was used to exsanguinate the limb and the tourniquet was inflated to 350 mmHg. A longitudinal upper medial tibial incision was used, over the pes anserine bursa.. Sharp dissection was used and Bovie electrocautery was used as needed for hemostasis. The fracture was identified, and I was able to palpate the fracture edge distally on the shaft. I visualized the articular fracture using the image intensifier. The large C-arm image intensifier was used throughout the case, and all of the images were interpreted intraoperatively by me. I used the Synthes stainless steel 4.5 mm periarticular locking set for the fixation. The length of the fracture was measured on the CT scan, and an appropriate plate chosen to get fixation distal to the most distal portion of the fracture on the shaft. A guide was placed in the upper locking raft screw holes. A guidepin was placed, with preliminary attachment of the plate to the bone, and the large image intensifier was used to confirm the position of the guidewire and the plate. The guidewire was advanced to the far cortex and measured, and then a conical 5.0 mm screw was used for compression across the fracture site as well as to compress the plate to the bone. Satisfactory position of that initial screw in the plate position was noted. Next a cortical screw was placed in the shaft portion of the plate, and a bicortical screw was used for compression of the plate to the bone, and securing that distal spike with a buttress. Next additional locking screws were placed at the articular region, for stabilization. Additional cortical screws were placed distally including all the way to the distal end of the plate. Finally the kickstand screw was placed in a locking fashion, to support the upper raft screws and prevent displacement. Images in AP and lateral planes had been used throughout, and showed satisfactory reduction and fixation. Copious irrigation was used. The tourniquet was released. Bovie electrocautery was used for hemostasis. The skin edges were injected with additional 0.5% bupivacaine with epinephrine. The incision was closed with #1 Vicryl, 2-0 Vicryl and erik by Ms. Chauhan. Needle and sponge counts were correct. There were no apparent competitions. Ms. Chauhan applied a sterile dressing and the knee immobilizer. DILEEP BARILLAS MD Aug 30, 2018 17:35
[2018-08-30] MEDS: MORPHINE SULFATE 2 MG/ML VIAL. IV PRN ×2 (17:38→18:13)
--- NOTE | 2018-08-30 18:07 | RAD ---
AP and lateral left tibia and fibula radiographs 08/30/2018 CLINICAL HISTORY: Post repair of a tibial plateau fracture. 2 AP and 2 lateral portable digital radiographs of the left tibia and fibula were obtained. The patient is post-ORIF of a fracture of the medial aspect of the proximal metaphysis/diaphysis of the left tibia with extension to the tibial plateau using a side plate and multiple bone screws. The alignment of the fracture fragments is near-anatomic. No dislocation is seen. IMPRESSION: Post-ORIF of a fracture of the proximal left tibia as outlined above. Electronically signed by: Marcel Wallace MD (08/30/2018 6:03 PM) [facility]
[2018-08-31 02:59] VITALS: BP 110/66
[2018-08-31] MEDS: KETOROLAC 30 MG/ML VIAL. IV SCH ×4 (05:42→18:18)
[2018-08-31] MEDS ORDERED: MAGNESIUM HYDROXIDE 2,400 MG/30 ML ORAL.SUSP. PO PRN (06:00)
[2018-08-31 06:28] LABS: HEMATOCRIT 40.3 % (39.0-53.0); HEMOGLOBIN 14.4 g/dL (13.0-17.5)
[2018-08-31 07:00] VITALS: BP 107/55
[2018-08-31] MEDS: CHOLECALCIFEROL (VITAMIN D3) 1,000 UNIT TABLET PO SCH (08:58)
[2018-08-31] MEDS: ASPIRIN 325 MG TABLET PO SCH (08:58)
[2018-08-31] MEDS: SENNOSIDES/DOCUSATE 8.6/50MG TABLET. PO SCH (08:58)
[2018-08-31] MEDS: HYDROcodone/APAP 7.5/325MG 1 TAB TABLET PO PRN ×2 (09:31→18:18)
[2018-08-31 11:00] VITALS: BP 141/70
--- NOTE | 2018-08-31 11:32 | PDOC ---
PROGRESS NOTES Chief Complaint Chief Complaint fracture of tibial plateau to surg yesterday PT and OT unstable joint, fall risk History of Present Illness History of Present Illness feels OK, pain better pain ok when at rest, surg yesterday, try to DC in AM Vitals Vitals Vital Signs Date Time Temp Pulse Resp B/P (MAP) Pulse Ox O2 Delivery O2 Flow Rate FiO2 08/31/18 09:31 14 Room Air 08/31/18 07:00 98.7 98 107/55 (72) 95 98.7 08/31/18 02:59 2.0 Physical Exam General: Alert, Oriented X3, Cooperative, No acute distress Heart: Regular rate Lungs: Clear Abdomen: Soft Extremities: No clubbing, No cyanosis, Normal pulses Skin: No rashes, No breakdown, No significant lesion Labs LABS Laboratory Tests Test 08/31/18 06:00 Hemoglobin 14.4 g/dL (13.0-17.5) Hematocrit 40.3 % (39.0-53.0) Mean Corpuscular Hemoglobin Concent 36 g/dL (31-37) Assessment and Plan Assessmemt and Plan Problems Medical Problems: (1) Tibial plateau fracture, left Status: Acute Comment Review of Relevant I have reviewed the following items berto (where applicable) has been applied. Labs Laboratory Tests Test 08/29/18 13:45 08/31/18 06:00 25-Hydroxy Vitamin D Total 13.9 ng/mL (30-100) Hemoglobin 14.4 g/dL (13.0-17.5) Hematocrit 40.3 % (39.0-53.0) Mean Corpuscular Hemoglobin Concent 36 g/dL (31-37) Laboratory Tests Test 08/31/18 06:00 Hemoglobin 14.4 g/dL (13.0-17.5) Hematocrit 40.3 % (39.0-53.0) Mean Corpuscular Hemoglobin Concent 36 g/dL (31-37) Medications Current Medications Oxycodone/ Acetaminophen (Percocet 5/325) 1 tab 1X ONCE PO Last administered on 08/28/18at 19:58; Start 08/28/18 at 19:45; Stop 08/28/18 at 19:54; Status DC Ondansetron HCl (Zofran) 4 mg PRN Q8HRS PRN IV NAUSEA/VOMITING 1ST CHOICE; Start 08/28/18 at 21:00; Stop 08/29/18 at 20:59; Status DC Morphine Sulfate (Morphine Sulfate) 4 mg PRN Q2HR PRN IV SEVERE PAIN Last administered on 08/29/18at 15:53; Start 08/28/18 at 21:00; Stop 08/29/18 at 20:59 ; Status DC Sodium Chloride 1,000 ml @ 75 mls/hr 1X ONCE IV Last administered on at 09:03; Start 08/29/18 at 08:45; Stop 08/29/18 at 22:04; Status DC Ketorolac Tromethamine (Toradol 30mg Vial) 30 mg Q6HRS IV Last administered on 08/31/18at 05:42; Start 08/29/18 at 12:00; Stop 09/03/18 at 11:59 Ondansetron HCl (Zofran) 4 mg PRN Q6HRS PRN IV NAUSEA/VOMITING; Start 08/30/18 at 07:00; Stop 08/30/18 at 21:00; Status DC Fentanyl Citrate (Fentanyl 2ml Vial) 25 mcg PRN Q5MIN PRN IV MILD PAIN; Start 08/30/18 at 07:00; Stop 08/30/18 at 21:00; Status DC Fentanyl Citrate (Fentanyl 2ml Vial) 50 mcg PRN Q5MIN PRN IV MODERATE TO SEVERE PAIN Last administered on 08/30/18at 17:54; Start 08/30/18 at 07:00; Stop 08/30/18 at 21:00; Status DC Morphine Sulfate (Morphine Sulfate) 1 mg PRN Q10MIN PRN IV SEVERE PAIN Last administered on 08/30/18at 18:13; Start 08/30/18 at 07:00; Stop 08/30/18 at 21:00 ; Status DC Ringer's Solution 1,000 ml @ 30 mls/hr Q24H IV Last administered on 08/30/18at 17:38; Start 08/30/18 at 07:00; Stop 08/30/18 at 18:59; Status DC Lidocaine HCl (Xylocaine-Mpf 1% 2ml Vial) 2 ml PRN 1X PRN ID IV START; Start 08/30/18 at 07:00; Stop 08/30/18 at 21:00; Status DC Hydromorphone HCl (Dilaudid) 0.5 mg PRN Q10MIN PRN IV SEV PAIN, Second choice; Start 08/30/18 at 07:00; Stop 08/30/18 at 21:00; Status DC Prochlorperazine Edisylate (Compazine) 5 mg PACU PRN PRN IV NAUSEA, MRX1 Last administered on 08/30/18at 17:33; Start 08/30/18 at 07:00; Stop 08/30/18 at 21:00 ; Status DC Ergocalciferol (Vitamin D2) 50,000 unit WEEKLY PO Last administered on at 09:39; Start 08/30/18 at 09:00 Morphine Sulfate (Morphine Sulfate) 4 mg PRN Q2HR PRN IV PAIN Last administered on 08/30/18at 10:30; Start 08/30/18 at 10:30 Midazolam HCl (Versed) 2 mg STK-MED ONCE .ROUTE ; Start 08/30/18 at 14:11; Stop 08/30/18 at 14:12; Status DC Fentanyl Citrate (Fentanyl 2ml Vial) 100 mcg STK-MED ONCE .ROUTE ; Start at 14:11; Stop 08/30/18 at 14:12; Status DC Propofol 20 ml @ As Directed STK-MED ONCE IV ; Start 08/30/18 at 14:11; Stop at 14:12; Status DC Bupivacaine HCl/ Epinephrine Bitart (Sensorcain-Mpf Epi 0.5%-1:[id number]) 30 ml STK -MED ONCE .ROUTE Last administered on 08/30/18at 16:25; Start 08/30/18 at 13:38 ; Stop 08/30/18 at 14:39; Status DC Cefazolin Sodium/ Dextrose 50 ml @ As Directed STK-MED ONCE IV ; Start 08/30/18 at 15:42; Stop 08/30/18 at 15:43; Status DC Oxycodone HCl (Roxicodone) 5 mg PRN Q3HRS PRN PO PAIN; Start 08/30/18 at 17:30 Morphine Sulfate (Morphine Sulfate) 2 mg PRN Q1HR PRN IV PAIN; Start 08/30/18 at 17:30 Fentanyl Citrate (Fentanyl 2ml Vial) 25 mcg PRN Q1HR PRN IV PAIN; Start at 17:30 Senna/Docusate Sodium (Senna Plus) 1 tab DAILY PO Last administered on at 08:58; Start 08/31/18 at 09:00 Polyethylene Glycol (miraLAX PACKET) 17 gm PRN DAILY PRN PO CONSTIPATION; Start 08/30/18 at 17:30 Vitamin D (Vitamin D3) 1,000 unit DAILY PO Last administered on 08/31/18at 08:58 ; Start 08/31/18 at 09:00 Ondansetron HCl (Zofran) 4 mg PRN Q4HRS PRN IV NAUSEA/VOMITING; Start 08/30/18 at 17:30 Aspirin (Aislinn Aspirin) 325 mg DAILYWBKFT PO Last administered on 08/31/18at 08: 58; Start 08/31/18 at 08:00 Magnesium Hydroxide (Milk Of Magnesia) 2,400 mg 1X PRN PRN PO CONSTIPATION; Start 08/31/18 at 06:00; Stop 09/01/18 at 05:59 Bisacodyl (Dulcolax Supp) 10 mg 1X PRN PRN TN CONSTIPATION; Start 08/31/18 at 16:00; Stop 09/01/18 at 15:59 Acetaminophen/ Hydrocodone Bitart (Lortab 7.5/325) 1 tab PRN Q4HRS PRN PO PAIN Last administered on 08/30/18at 21:03; Start 08/30/18 at 17:30 Morphine Sulfate (Morphine Sulfate) 4 mg PRN Q2HR PRN IV PAIN; Start 08/30/18 at 17:30 Acetaminophen/ Hydrocodone Bitart (Lortab 7.5/325) 2 tab PRN Q4HRS PRN PO PAIN Last administered on 08/31/18at 09:31; Start 08/30/18 at 17:30 Dextrose (Dextrose 50%-Water Syringe) 12.5 gm PRN Q15MIN PRN IV SEE COMMENTS; Start 08/30/18 at 17:30 Cefazolin Sodium/ Dextrose 50 ml @ 100 mls/hr Q6H IV ; Start 08/30/18 at 18:00 ; Stop 08/30/18 at 18:00; Status DC Cefazolin Sodium/ Dextrose 50 ml @ 100 mls/hr Q6HRS IV Last administered on 10 /3/18at 05:41; Start 08/30/18 at 20:00; Stop 08/31/18 at 06:29; Status DC Vitals/I & O Vital Sign - Last 24 Hours 08/30/18 08/30/18 08/30/18 08/30/18 13:00 17:18 17:18 17:33 Temp 97.4 98.5 97.4 98.5 Pulse 66 88 70 Resp 18 20 22 B/P (MAP) 123/64 90/66 106/62 Pulse Ox 97 100 90 O2 Delivery Room Air Mask Simple Mask Room Air O2 Flow Rate 10 08/30/18 08/30/18 08/30/18 08/30/18 17:35 17:38 17:48 17:54 Pulse 75 Resp 20 20 20 20 B/P (MAP) 106/58 Pulse Ox 99 95 94 92 O2 Delivery Room Air Room Air Room Air Room Air 08/30/18 08/30/18 08/30/18 08/30/18 18:03 18:10 18:13 18:25 Temp 97.8 97.8 Pulse 64 79 Resp 20 20 18 B/P (MAP) 105/57 124/66 (85) Pulse Ox 98 94 O2 Delivery Nasal Cannula Nasal Cannula Nasal Cannula Room Air O2 Flow Rate 2 2 2.0 08/30/18 08/30/18 08/30/18 08/30/18 18:56 18:56 19:20 19:35 Temp 97.5 98.2 97.5 98.2 Pulse 73 85 Resp 18 18 18 18 B/P (MAP) 120/72 (88) 126/66 (86) Pulse Ox 94 94 O2 Delivery Room Air Room Air Room Air Room Air 08/30/18 08/30/18 08/30/18 08/30/18 20:00 20:05 20:35 21:03 Temp 98.1 98.3 98.1 98.3 Pulse 94 85 Resp 20 18 18 B/P (MAP) 128/77 (94) 133/74 (93) Pulse Ox 95 94 O2 Delivery Room Air Room Air Room Air Room Air 08/30/18 08/30/18 08/30/18 08/30/18 21:05 22:05 22:30 23:11 Temp 98.1 98.4 98.3 98.1 98.4 98.3 Pulse 85 89 70 Resp 18 18 18 18 B/P (MAP) 118/74 (89) 118/74 (89) 115/57 (76) Pulse Ox 94 94 93 93 O2 Delivery Room Air Room Air Nasal Cannula Nasal Cannula O2 Flow Rate 1.0 1.0 08/31/18 08/31/18 08/31/18 08/31/18 02:59 07:00 08:00 09:31 Temp 98.0 98.7 98.0 98.7 Pulse 64 98 Resp 18 16 14 B/P (MAP) 110/66 (81) 107/55 (72) Pulse Ox 97 95 O2 Delivery Nasal Cannula Room Air Room Air Room Air O2 Flow Rate 2.0 Intake and Output 08/30/18 08/30/18 08/31/18 15:00 23:00 07:00 Intake Total 1685 ml 540 ml Output Total 50 ml 750 ml Balance 1635 ml -210 ml LANDY DEL VALLE MD Aug 31, 2018 11:32
[2018-08-31 15:00] VITALS: BP 109/66
[2018-08-31] MEDS ORDERED: BISACODYL 10 MG SUPP.RECT. PR PRN (16:00)
[2018-08-31 19:00] VITALS: BP 137/66
[2018-08-31 23:00] VITALS: BP 107/68
[2018-09-01] MEDS: KETOROLAC 30 MG/ML VIAL. IV SCH ×3 (00:04→11:01)
[2018-09-01 03:00] VITALS: BP 107/60
[2018-09-01 07:00] VITALS: BP 107/58
[2018-09-01] MEDS: ASPIRIN 325 MG TABLET PO SCH (08:16)
[2018-09-01] MEDS: CHOLECALCIFEROL (VITAMIN D3) 1,000 UNIT TABLET PO SCH (08:16)
[2018-09-01] MEDS: SENNOSIDES/DOCUSATE 8.6/50MG TABLET. PO SCH (08:16)
[2018-09-01 11:00] VITALS: BP 131/63
[2018-09-01] MEDS ORDERED: ASPI325T8 PO (11:39)
[2018-09-01] MEDS ORDERED: ERGO500027 PO (11:39)
[2018-09-01] MEDS ORDERED: POLY17PO3 PO (11:39)
[2018-09-01] MEDS ORDERED: HYDR-2762 PO (11:39)
--- NOTE | 2018-09-01 11:42 | PDOC3 ---
Discharge Summary Visit Information Date of Admission: Aug 28, 2018 Date of Discharge: Sep 01, 2018 Admitting Diagnosis: left leg fracture Final Diagnosis fracture of tibial plateau to surg Dr. Barillas, ORIF, looked well unstable joint, fall risk Vitamin D deficiency Problems Medical Problems: (1) Tibial plateau fracture, left Status: Acute Brief Hospital Course Allergies Allergies Coded Allergies Type Severity Reaction Last Updated Verified No Known Drug Allergies 08/30/18 No Vital Signs Vital Signs Date Time Temp Pulse Resp B/P (MAP) Pulse Ox O2 Delivery O2 Flow Rate FiO2 09/01/18 11:01 Room Air 09/01/18 07:00 98.3 72 16 107/58 (74) 94.0 98.3 09/01/18 03:00 94 Lab Results Laboratory Tests Test 08/31/18 06:00 Hemoglobin 14.4 g/dL (13.0-17.5) Hematocrit 40.3 % (39.0-53.0) Mean Corpuscular Hemoglobin Concent 36 g/dL (31-37) Brief Hospital Course Mr. Contreras is a 63 old admit for fx, req. surg. then PT. pain and weakness, ortho worried about unstable joint Discharge Information Condition at Discharge: Improved Follow Up: Weeks Disposition/Orders: D/C to Home Scheduled Aspirin (Aspirin) 325 Mg Tablet, 325 MG PO DAILYWBKFT, #90 Prescribed by: LANDY DEL VALLE on 09/01/18 1139 Ergocalciferol (Vitamin D2) (Vitamin D2) 50,000 Unit Capsule, 50,000 UNIT PO WEEKLY, #7 Prescribed by: LANDY DEL VALLE on 09/01/18 1139 Polyethylene Glycol 3350 (Polyethylene Glycol 3350) 17 Gm Powd.pack, 17 GM PO DAILY, #30 Prescribed by: LANDY DEL VALLE on 09/01/18 1139 Scheduled PRN Hydrocodone Bit/Acetaminophen (Hydrocodone-Apap 7.5-325 ) 1 Each Tablet, 1 TAB PO PRN Q4HRS PRN for PAIN, #30 Prescribed by: LANDY DEL VALLE on 09/01/18 1139 Patient Instructions Patient Instructions > 30 min face to face LANDY DEL VALLE MD Sep 01, 2018 11:42
[2018-09-01] MEDS: HYDROcodone/APAP 7.5/325MG 1 TAB TABLET PO PRN (14:00)
== END 2018-09-01 14:20 | disposition home or self-care (01) | DRG 494 ==
LOC: ER 17:53 → 4 NORTH 20:45
PROVIDERS: ADMIT Internal Medicine; ATTEND Internal Medicine
PROC: 0S9D3ZZ Drainage of Left Knee Joint, Percutaneous Approach (ICD-10-PCS; 2018-08-30)
PROC: 0QSH04Z Reposition Left Tibia with Internal Fixation Device, Open Approach (ICD-10-PCS; principal; 2018-08-30 16:15)
DX: S82.145A Nondisplaced bicondylar fracture of left tibia, initial encounter for closed fracture (principal); E55.9 Vitamin D deficiency, unspecified; S83.8X2A Sprain of other specified parts of left knee, initial encounter; M25.362 Other instability, left knee; W01.0XXA Fall on same level from slipping, tripping and stumbling without subsequent striking against object, initial encounter; Y93.89 Activity, other specified; Y99.8 Other external cause status; Y92.89 Other specified places as the place of occurrence of the external cause; Z79.899 Other long term (current) drug therapy
CPT/HCPCS: 29505; 36415; 73562; 73590; 73700; 76000; 80053; 82306; 85014; 85018; 85025; A7015; C1713; J0690; J0780; J1885; J2250; J2270; J2704; J3010; J3490; J7030; J7120; 97116; 97535; 99285-25